=== PATIENT | male | born 1980 | race Caucasian/White ===

== ENCOUNTER 2016-11-17 07:09 | Emergency (ER) | payer OTHER ==
[~2016-11-17] VITALS: Ht 175.3 cm; Wt 104.3 kg
[2016-11-17 08:26] LABS: MEAN CORPUSCULAR HEMOGLOBIN 32.8 pg (27.0-33.0); MEAN CORPUSCULAR VOLUME 93.6 fl (80.0-96.0); WHITE BLOOD COUNT 5.8 K/mm3 (4.0-10.0)
[2016-11-17 08:51] LABS: METHADONE URINE NEGATIVE (NEGATIVE)
[2016-11-17 08:58] LABS: ALBUMIN/GLOBULIN RATIO 1.05 (1.00-1.93); ALKALINE PHOSPHATASE 119 U/L (45-117); ALT/SGPT 409 U/L (12-78); ANION GAP 7 MEQ/L (8-16); AST/SGOT 126 U/L (15-37); BILIRUBIN,DIRECT 0.2 MG/DL (0.0-0.2); BILIRUBIN,TOTAL 0.3 MG/DL (0.2-1.0); BLOOD UREA NITROGEN 8 MG/DL (7-18); CALCIUM LEVEL 8.2 MG/DL (8.5-10.1); CARBON DIOXIDE LEVEL 28 MEQ/L (21-32); CHLORIDE LEVEL 107 MEQ/L (98-107); CREATININE FOR GFR 1.21 MG/DL (0.70-1.30); GLOMERULAR FILTRATION RATE > 60.0 (>60); GLUCOSE, FASTING 126 MG/DL (70-105); POTASSIUM SERUM 4.1 MEQ/L (3.5-5.1); SODIUM LEVEL 142 MEQ/L (136-145); TOTAL PROTEIN 7.8 GM/DL (6.4-8.2)
[2016-11-17] MEDS ORDERED: NICOTINE 21MG/24HR 1 EA TRANSDERMAL TD ONE (09:30)
[2016-11-17 18:24] VITALS: BP 132/76
== END 2016-11-17 18:29 | disposition home or self-care (01) ==
LOC: M ED 08:27
DX: F10.120 Alcohol abuse with intoxication, uncomplicated (principal); F10.151 Alcohol abuse with alcohol-induced psychotic disorder with hallucinations; F17.210 Nicotine dependence, cigarettes, uncomplicated

== ENCOUNTER → 2018-03-01 | Outpatient (REF) | payer OTHER ==
[2018-03-01 15:55] LABS: ALBUMIN 3.8 GM/DL (3.2-5.2); ALBUMIN/GLOBULIN RATIO 1.12 (1.00-1.93); ALKALINE PHOSPHATASE 112 U/L (45-117); ALT/SGPT 183 U/L (12-78); AST/SGOT 83 U/L (7-37); BILIRUBIN,DIRECT 0.2 MG/DL (0.0-0.2); BILIRUBIN,TOTAL 0.5 MG/DL (0.2-1.0); TOTAL PROTEIN 7.2 GM/DL (6.4-8.2)
[2018-03-02 09:43] LABS: HEPATITIS B SURFACE ANTIBODY POSITIVE (POSITIVE)
[2018-03-02 10:09] LABS: HIV 1&2 SCREEN CENTAUR NEGATIVE (NEGATIVE)
[2018-03-07 00:12] LABS: ALPHA 2-MACROGLOBULIN 160 mg/dL (110-276); ALT 181 IU/L (0-55); APOLIPOPROTEIN A-1 130 mg/dL (101-178); FIBROSIS SCORE 0.23 (0.00-0.21); FIBROSIS STAGE F0-F1 (.); GGT 54 IU/L (0-65); HAPTOGLOBIN 20 mg/dL (34-200); HEPATITIS A IgG TOTAL Positive (Negative); HEPATITIS C QUANTITATION 892980 IU/mL (.); HEPATITIS C VIRUS GENOTYPE 1a (.); NECROINFLAM SCORE 0.76 (0.00-0.17); NECROINFLAMM GRADE A3-Severe activity (.); TOTAL BILIRUBIN 0.2 mg/dL (0.0-1.2)
== END ==
LOC: M SFHCPLAZ 12:26
DX: B18.2 Chronic viral hepatitis C (principal)

== ENCOUNTER → 2018-11-06 | Outpatient (REF) ==
--- NOTE | 2018-11-07 01:33 | REP ---
Clinical: Pain and disability. Technique: AP, lateral, bilateral oblique views of the right ankle. Findings: Evidence of prior open reduction and fixation involving the distal fibula and medial malleolus. Post traumatic arthritic degenerative changes are appreciated including cortical irregularities, areas of subchondral sclerosis, as well as calcified fracture fragments and loose bodies along the medial joint space. Moderate soft tissue swelling is also suggested. Impression: Evidence of prior trauma and fixation with post traumatic arthritic changes. Electronically Signed by Jatin Sood MD 11/07/2018 01:24 A
== END ==
LOC: M SMT 14:37
PROVIDERS: ATTEND Internal Medicine
DX: Z00.00 Encounter for general adult medical examination without abnormal findings (principal)

== ENCOUNTER 2019-11-24 18:16 | Inpatient (IN) | payer OTHER ==
[~2019-11-24] VITALS: Ht 175.3 cm; Wt 90.9 kg
[2019-11-24 19:00] LABS: HEMATOCRIT 42.9 % (42.0-52.0); HEMOGLOBIN 15.2 g/dl (13.5-17.5); MEAN CORPUSCULAR HEMOGLOBIN 30.6 pg (27.0-33.0); MEAN CORPUSCULAR HGB CONC 35.4 g/dl (32.0-36.5); MEAN CORPUSCULAR VOLUME 86.5 fl (80.0-96.0); PLATELET COUNT, AUTOMATED 219 10^3/uL (150-450); RED BLOOD COUNT 4.96 10^6/uL (4.30-6.10)
[2019-11-24 19:34] LABS: ACETAMINOPHEN LEVEL < 2.0 UG/ML (10.0-30.0); ALBUMIN 3.9 GM/DL (3.2-5.2); ALT/SGPT 24 U/L (12-78); BILIRUBIN,DIRECT 0.1 MG/DL (0.0-0.2); BILIRUBIN,TOTAL 0.5 MG/DL (0.2-1.0); BLOOD UREA NITROGEN 9 MG/DL (7-18); CALCIUM LEVEL 8.5 MG/DL (8.5-10.1); CARBON DIOXIDE LEVEL 23 MEQ/L (21-32); CHLORIDE LEVEL 103 MEQ/L (98-107); CREATININE FOR GFR 0.98 MG/DL (0.70-1.30); ETHYL ALCOHOL (ETHANOL) 0.078 % (0.000-0.010); GLOMERULAR FILTRATION RATE > 60.0 (>60); GLUCOSE, FASTING 83 MG/DL (70-100); POTASSIUM SERUM 3.8 MEQ/L (3.5-5.1); SALICYLATE LEVEL < 1.7 MG/DL (5.0-30.0); SODIUM LEVEL 136 MEQ/L (136-145); THYROID STIMULATING HORMONE 0.925 uIU/ML (0.358-3.740); TOTAL PROTEIN 7.3 GM/DL (6.4-8.2)
[2019-11-24 20:38] LABS: AMPHETAMINES LEVEL URINE NEGATIVE (NEGATIVE); BARBITURATES URINE NEGATIVE (NEGATIVE); BENZODIAZEPINES URINE NEGATIVE (NEGATIVE); CANNABINOIDS URINE NEGATIVE (NEGATIVE); COCAINE METABOLITE URINE NEGATIVE (NEGATIVE); METHADONE URINE NEGATIVE (NEGATIVE); OPIATES URINE NEGATIVE (NEGATIVE); PHENCYCLIDINE URINE NEGATIVE (NEGATIVE)
[2019-11-24] MEDS ORDERED: LORazepam 1 MG TAB PO ONE (22:00)
[2019-11-24] MEDS ORDERED: hydrOXYzine 50 MG TAB PO ONE (23:30)
[2019-11-25] MEDS ORDERED: ACETAMINOPHEN 500 MG TAB PO ONE (02:45)
[2019-11-25] MEDS ORDERED: MOM 30ML SUSPENSION UDC PO PRN (16:30)
[2019-11-25] MEDS ORDERED: traZODone 50 MG TAB PO PRN (16:30)
[2019-11-25] MEDS ORDERED: MAALOX 30 ML SUSP *UDC PO PRN (16:30)
[2019-11-25] MEDS ORDERED: ACETAMINOPHEN TAB 650MG DOSE (2X325MG) PO PRN (16:30)
[2019-11-25 17:42] VITALS: BP 140/72
[2019-11-25] MEDS: NICOTINE 21MG/24HR 1 EA TRANSDERMAL TD SCH (18:58)
[2019-11-25] MEDS: OLANZapine ORAL DISINTEGRATING TAB 5MG PO PRN (19:57)
[2019-11-26] MEDS: tiZANidine 4 MG TAB PO PRN ×2 (00:13→20:13)
[2019-11-26 06:13] VITALS: BP 137/91
--- NOTE | 2019-11-26 07:09 | ECGEPIP ---
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
--- NOTE | 2019-11-26 09:17 | MHHPEPDOC ---
[facility] History & Physical History and Physical DATE OF ADMISSION: November 25, 2019 at 16:20 New Patient Trent Denise MRN: N/A Date of : N/A Date of Service: 11/26/2019 Chief Complaint "I was drinking." History of Present Illness The patient a 39-year-old man with a history of reported bipolar disorder presents after becoming drunk and being brought in for evaluation. He had been notably unusually acting and had a significantly unusual presentation which was concerning for psychosis. He was admitted out of an abundance of caution. When he was met with he described that he was no longer thinking in that same way and have been drinking on the night in question. The patient reported that he has a history of bipolar disorder with symptoms consistent with possibly a manic episode while sober. However, he reports that he is currently in trouble with probation as he was found drinking. He reports that he at this time is feeling much improved. Review Of Systems Depression: The patient reports episodes of low mood in the past, unclear if meeting full criteria for MDD. Anxiety: None reported. Nesha: The patient denies any episodes of euphoria/dysphoria associated with decreased need for sleep, hedonism, talkatively or impulsivity lasting longer than 5 days. Psychotic: The patient denies any experiences of auditory or visual hallucinations. They deny any episodes of paranoia or delusional thinking in the past Trauma: The patient denies any traumatic events associated with nightmares or intrusive thoughts. Borderline: Not screened. Past Psychiatric History The patient reports having a history of presenting to the ER but no overt admissions, no suicide attempts, diagnosis of bipolar previously tried on Seroquel, no current mental health treatment. Allergies Please see below. Family Psychiatric History Noncontributory. Social History Currently on probation. The patient has a significant legal history. Grew up in the local area and moved to [place] recently. Denies any history of trauma or abuse. Substance Abuse History Reports a history of drinking and problems related but denies other substances at this time. Reports experimenting with a number of them but never being "fixated on them." Medical History History of orthopedic surgery but no other contributing problems. Mental Status Examination General: Well dressed with good hygiene Speech: Spontaneous and fluid Thought processes: Linear and logical MSK: Smooth and coordinated gait, no signs of tremors or involuntary orofacial movements Thought content: Future orientated Abstract reasoning, and computation: Intact Description of associations: Intact Description of abnormal or psychotic thoughts: Denies any suicidal or homicidal ideation. Denies any auditory or visual hallucinations. Does not appear to be responding to internal stimuli. Does not appear to be endorsing any bizarre or paranoid ideation. Judgment: fair Insight: fair Orientation: Alert and orientated 3 Cognition: Grossly normal Recent and remote memory: Intact Attention span and concentration: Intact Fund of knowledge: Adequate Mood: "okay" Affect: Mildly dysthymic Diagnoses Unspecified bipolar disorder. Alcohol use disorder, unspecified. Assessment and Plan Unspecified bipolar disorder: Start Seroquel 25 mg nightly, discussed the risk, benefits, potential side effects with patient including alternatives. Alcohol use disorder: Maintained CIWA at this time. Disposition Will observe overnight if patient is still amenable without any suicidal or homicidal ideation, he will be discharged at his request. Problem List 1. Ineffective coping. 2. Substance use Initial Treatment Plan 1. Patient was admitted on a 9.39 legal status. 2. Complete history was obtained. 3. With patients permission, family will be contacted and database will be e xpanded. 4. Patients medication regimen will be reviewed and changed accordingly. 5. Patient will be provided with protected environment. 6. Patient will be treated with individual, group, and milieu therapies. 7. Patient will receive supportive psych-education. 8. Discharge planning will commence immediately. 9. Outpatient follow-up treatment will be strongly recommended. 10. The initial treatment plan will focus initially on: Estimated Length Of Stay 2 days. Time Spent 70 minutes with greater than 50% of time spent on counseling/coordination of care. Vital Signs Vital Signs Date Time Temp Pulse Resp B/P (MAP) Pulse Ox O2 Delivery O2 Flow Rate FiO2 11/26/19 08:45 Room Air 11/26/19 06:13 98.5 55 14 137/91 (106) 98 Medications Scheduled Nicotine (Nicotine Patch) 21 Mg Patch.td24, 1 PATCH TD DAILY for tobacoo Quetiapine Fumarate (Quetiapine Fumarate) 25 Mg Tablet, 25 MG PO QHS for mood Allergies Coded Allergies: No Known Allergies (Unverified , 11/17/16) WU BURCH DO November 26, 2019 09:17
[2019-11-26] MEDS: NICOTINE 21MG/24HR 1 EA TRANSDERMAL TD SCH (11:10)
--- NOTE | 2019-11-26 15:07 | HPEPDOC ---
General Date of Admission November 25, 2019 at 16:20 Date of Service: November 26, 2019 Chief Complaint The patient is a 39-year-old male who presented to [facility] because his nuclear medicine officer found him to be intoxicated History of Present Illness Patient is a 39-year-old male with a PMHx of substance abuse who was brought to [facility] by police because of reported altered mental status at home. Patient had denied any suicidal / homidicidla ideation. He does admit to consuming alcohol. Patient was admitted to inpatient mental health under the care of psychiatry. Hospitalist services consult for medical screening evaluation. Patient reports a mild headache. He denies any nausea, vomiting, chest pain, shortness of breath, palpitations, abdominal pain, constipation, diarrhea, or urinary discomfort. He is not aware of any recent fevers or chills. Reports that his appetite is normal. His weight has been persistent. Home Medications No Active Prescriptions or Reported Meds Allergies Coded Allergies: No Known Allergies (Unverified , 11/17/16) Past Medical History Medical History Prior history of substance abuse Surgical History Right ankle surgery Family History - No history of malignancies Social History - Denies the use of tobacco or illicit drugs currently; patient recently did consume alcohol - Denies recent travel or sick contacts - Lives with jason and her son - Occupation; patient reports that he works at [employer] Review of Systems Other systems 10 point review of systems complete, all negative otherwise stated in HPI Vital Signs - Vitals: BP 137/91, HR 55, RR 14, Sat 98%RA, Temp 98.5F - General: Lying in bed, No acute distress, Speaking in full sentences, AAOx3 - HEENT: NC, AT, PERRLA, EOMI - CVS: RRR, +S1S2 - Lungs: Fair air entry bilaterally, No appreciable wheezing / rales / rhonchi - Abdomen: Soft, Non-distended, Non-tender - Extremities: No lower extremity edema, No calf tenderness - Neuro: No focal motor or sensory deficit - Skin: No visible rashes Plan / VTE VTE Prophylaxis Ordered?: Yes Plan Plan Substance abuse - Patient was admitted to the inpatient mental health unit under the care of psychiatry - Currently being managed by psychiatry No significant past medical history DVT prophylaxis - Will continue with early ambulation Thank you for this consultation; please reconsult as needed JADON GAMBOA MD November 26, 2019 15:07
[2019-11-26 16:42] VITALS: BP 146/80
[2019-11-26] MEDS ORDERED: QUEtiapine FUMARATE 25 MG TAB PO SCH (21:00)
[2019-11-27 06:17] VITALS: BP 131/81
[2019-11-27] MEDS: NICOTINE 21MG/24HR 1 EA TRANSDERMAL TD SCH (08:05)
[2019-11-27] MEDS: tiZANidine 4 MG TAB PO PRN (08:05)
[2019-11-27] MEDS: OLANZapine ORAL DISINTEGRATING TAB 5MG PO PRN (08:05)
--- NOTE | 2019-11-27 09:54 | MHDSPDOC ---
[facility] Discharge Summary Discharge Summary DATE OF ADMISSION: November 25, 2019 at 16:20 DATE OF DISCHARGE: 11/27/2019 Discharge Trent Denise MRN: N/A Date of : N/A Date of Service: 11/27/2019 Diagnoses Unspecified bipolar disorder. Alcohol use disorder, unspecified. History of Present Illness The patient a 39-year-old man with a history of reported bipolar disorder presents after becoming drunk and being brought in for evaluation. He had been notably unusually acting and had a significantly unusual presentation which was concerning for psychosis. He was admitted out of an abundance of caution. When he was met with he described that he was no longer thinking in that same way and have been drinking on the night in question. The patient reported that he has a history of bipolar disorder with symptoms consistent with possibly a manic episode while sober. However, he reports that he is currently in trouble with probation as he was found drinking. He reports that he at this time is feeling much improved. Consultants Involved Hospitalist/PCP screening Treatment and Progress On The Unit The patient was admitted to the inpatient mental health unit. He was started on Seroquel. He did not have any notable paranoia or bizarreness when he had arrived . He was treated well and he improved with good insight and generally improved without much dysthymia after his initial presentation. He had an uneventful admission, was compliant with treatment and generally pleasant. He had no major behavioral problems and was discharged at his request after 48 hours of observation. Discharge Assessment 39 -year-old man with likely alcohol problems creating some unusual behaviors misinterpreted as psychosis. He does have a history potentially of bipolar disorder and started on appropriate treatment. The patient at the time of discharge did not meet criteria for involuntary a dmission/extension due to having a normal mental status exam, fair insight into the situation, They are engaged in the discharge process, as well as being friendly and amenable in behavioral control and havent been engaging in any observed concerning behavior or ideation recently. They decline voluntary extension/admission at this time and must be discharged in good brittany, as Im unable to make a case for holding the patient against their will. They may have historical risk factors of admissions and other interactions with psychiatry however, those are not modifiable from a clinical perspective. The patient will need to be discharged in good brittany. Mental Status Examination General: Well dressed with good hygiene Speech: Spontaneous and fluid Thought processes: Linear and logical MSK: Smooth and coordinated gait, no signs of tremors or involuntary orofacial movements Thought content: Future orientated Abstract reasoning, and computation: Intact Description of associations: Intact Description of abnormal or psychotic thoughts: Denies any suicidal or homicidal ideation. Denies any auditory or visual hallucinations. Does not appear to be responding to internal stimuli. Does not appear to be endorsing any bizarre or paranoid ideation. Judgment: fair Insight: fair Orientation: Alert and orientated 3 Cognition: Grossly normal Recent and remote memory: Intact Attention span and concentration: Intact Fund of knowledge: Adequate Mood: "okay" Affect: Euthymic with a full range Follow Up The social work team worked during the predischarge meeting in order to evaluate for further issues of lethality address them fully before discharge. They worked on safety planning with the patient's family members in order to ensure that the patient will have a safe and effective discharge. Time Spent The amount of time spent in the coordination of care for this patient was approximately 45 minutes. Monday Vital Signs/I&Os Vital Signs Date Time Temp Pulse Resp B/P (MAP) Pulse Ox O2 Delivery O2 Flow Rate FiO2 11/27/19 07:55 Room Air 11/27/19 06:17 97.6 85 14 131/81 (98) 98 Medications Scheduled Nicotine (Nicotine Patch) 21 Mg Patch.td24, 1 PATCH TD DAILY for tobacoo for 30 Days, #30 Quetiapine Fumarate (Quetiapine Fumarate) 25 Mg Tablet, 25 MG PO QHS for mood for 7 Days, #7 Allergies Coded Allergies: No Known Allergies (Unverified , 11/17/16) WU BURCH DO November 27, 2019 09:54
[2019-11-27] MEDS ORDERED: NICO21PAT TD (10:15)
[2019-11-27] MEDS ORDERED: QUET25TA3 PO (10:15)
== END 2019-11-27 13:45 | disposition home or self-care (01) | DRG 753 ==
LOC: M ED 18:16 → M ED INP 11-25 16:20 → M PSY 11-25 17:40
PROVIDERS: ADMIT Psychiatry & Neurology Addiction Medicine; ATTEND Psychiatry & Neurology Addiction Medicine
DX: F31.9 Bipolar disorder, unspecified (principal); F10.10 Alcohol abuse, uncomplicated

== ENCOUNTER 2019-12-21 23:38 | Emergency (ER) | payer OTHER ==
[~2019-12-21 23:38] MED LIST: NICO21PAT TD; QUET1TAB7 PO
[2019-12-22 00:38] LABS: HEMATOCRIT 45.2 % (42.0-52.0); HEMOGLOBIN 15.7 g/dl (13.5-17.5); MEAN CORPUSCULAR HEMOGLOBIN 30.7 pg (27.0-33.0); MEAN CORPUSCULAR HGB CONC 34.7 g/dl (32.0-36.5); MEAN CORPUSCULAR VOLUME 88.5 fl (80.0-96.0); PLATELET COUNT, AUTOMATED 241 10^3/uL (150-450); RED BLOOD COUNT 5.11 10^6/uL (4.30-6.10); WHITE BLOOD COUNT 8.8 10^3/uL (4.0-10.0)
[2019-12-22 00:43] LABS: AMPHETAMINES LEVEL URINE NEGATIVE (NEGATIVE); BARBITURATES URINE NEGATIVE (NEGATIVE); BENZODIAZEPINES URINE NEGATIVE (NEGATIVE); CANNABINOIDS URINE NEGATIVE (NEGATIVE); COCAINE METABOLITE URINE NEGATIVE (NEGATIVE); METHADONE URINE NEGATIVE (NEGATIVE); OPIATES URINE NEGATIVE (NEGATIVE); PHENCYCLIDINE URINE NEGATIVE (NEGATIVE)
[2019-12-22 01:02] LABS: ACETAMINOPHEN LEVEL < 2.0 UG/ML (10.0-30.0); ALBUMIN 4.4 GM/DL (3.2-5.2); ALT/SGPT 43 U/L (12-78); BILIRUBIN,DIRECT 0.2 MG/DL (0.0-0.2); BILIRUBIN,TOTAL 0.3 MG/DL (0.2-1.0); BLOOD UREA NITROGEN 23 MG/DL (7-18); CALCIUM LEVEL 8.6 MG/DL (8.5-10.1); CARBON DIOXIDE LEVEL 25 MEQ/L (21-32); CHLORIDE LEVEL 106 MEQ/L (98-107); CREATININE FOR GFR 1.21 MG/DL (0.70-1.30); ETHYL ALCOHOL (ETHANOL) 0.266 % (0.000-0.010); GLOMERULAR FILTRATION RATE > 60.0 (>60); GLUCOSE, FASTING 101 MG/DL (70-100); POTASSIUM SERUM 4.2 MEQ/L (3.5-5.1); SALICYLATE LEVEL < 1.7 MG/DL (5.0-30.0); SODIUM LEVEL 139 MEQ/L (136-145); TOTAL PROTEIN 7.8 GM/DL (6.4-8.2)
[2019-12-22 09:00] VITALS: BP 130/60
== END 2019-12-22 09:38 | disposition home or self-care (01) ==
LOC: M ED 23:38
DX: F10.121 Alcohol abuse with intoxication delirium (principal); F19.150 Other psychoactive substance abuse with psychoactive substance-induced psychotic disorder with delusions; Z79.899 Other long term (current) drug therapy
CPT/HCPCS: 36415; 80048; 80076; 80307; 84443; 85027; 99284; G0480

== ENCOUNTER 2023-02-17 08:59 | Inpatient (IN) | payer OTHER ==
[~2023-02-17] VITALS: Ht 175.3 cm; Wt 210.1 kg
[~2023-02-17 08:59] MED LIST changes: +QUET1TAB17 PO; -QUET1TAB7 PO
[2023-02-17] MEDS ORDERED: BUPR1SUB5 SL (09:15)
[2023-02-17] MEDS ORDERED: DOCU100C16 PO (09:15)
[2023-02-17] MEDS ORDERED: LUMA42CA PO (09:15)
[2023-02-17 10:24] LABS: HEMATOCRIT 43.9 % (42.0-52.0); HEMOGLOBIN 15.2 g/dl (13.5-17.5); MEAN CORPUSCULAR HEMOGLOBIN 30.3 pg (27.0-33.0); MEAN CORPUSCULAR HGB CONC 34.6 g/dl (32.0-36.5); MEAN CORPUSCULAR VOLUME 87.5 fl (80.0-96.0); PLATELET COUNT, AUTOMATED 201 10^3/uL (150-450); RED BLOOD COUNT 5.02 10^6/uL (4.30-6.10); WHITE BLOOD COUNT 8.6 10^3/uL (4.0-10.0)
[2023-02-17 10:37] LABS: AMPHETAMINES LEVEL URINE NEGATIVE (NEGATIVE); BARBITURATES URINE NEGATIVE (NEGATIVE); BENZODIAZEPINES URINE NEGATIVE (NEGATIVE); CANNABINOIDS URINE NEGATIVE (NEGATIVE); COCAINE METABOLITE URINE NEGATIVE (NEGATIVE); METHADONE URINE NEGATIVE (NEGATIVE); OPIATES URINE NEGATIVE (NEGATIVE); PHENCYCLIDINE URINE NEGATIVE (NEGATIVE)
[2023-02-17 10:46] LABS: ETHYL ALCOHOL (ETHANOL) < 0.003 % (0.000-0.010)
[2023-02-17 10:48] LABS: ACETAMINOPHEN LEVEL < 2.0 UG/ML (10.0-20.0); ALKALINE PHOSPHATASE 73 U/L (46-116); ALT/SGPT 47 U/L (7.0-40); AST/SGOT 38 U/L (<34); BILIRUBIN,DIRECT 0.2 MG/DL (<0.4); BILIRUBIN,TOTAL 0.6 MG/DL (0.3-1.2); BLOOD UREA NITROGEN 9 MG/DL (9-23); CALCIUM LEVEL 9.2 MG/DL (8.5-10.1); CARBON DIOXIDE LEVEL 27 MMOL/L (20-31); CHLORIDE LEVEL 101 MMOL/L (98-107); CREATININE FOR GFR 0.93 MG/DL (0.70-1.30); GLOMERULAR FILTRATION RATE > 60.0 (>60); GLUCOSE, FASTING 112 MG/DL (60-100); POTASSIUM SERUM 4.3 MMOL/L (3.5-5.1); SALICYLATE LEVEL < 3.0 MG/DL (<30); SODIUM LEVEL 136 MMOL/L (136-145); TOTAL PROTEIN 6.8 G/DL (5.7-8.2)
[2023-02-17] MEDS ORDERED: OLANZapine ORAL DISINTEGRATING TAB 5MG PO ONE (11:50)
[2023-02-17] MEDS ORDERED: LORazepam 2 MG TAB PO STA (11:50)
[2023-02-17] MEDS ORDERED: MED REC IN PROGRESS XX SCH (12:35)
[2023-02-17] MEDS ORDERED: HOME MED LIST COMPLETE! XX SCH (12:40)
[2023-02-17] MEDS ORDERED: MAALOX 30 ML SUSP *UDC PO PRN (14:25)
[2023-02-17] MEDS ORDERED: IBUPROFEN 400MG TAB PO PRN (14:25)
[2023-02-17] MEDS ORDERED: MOM 30ML SUSPENSION UDC PO PRN (14:25)
[2023-02-17] MEDS ORDERED: ACETAMINOPHEN TAB 650MG DOSE (2X325MG) PO PRN (14:25)
[2023-02-17 17:05] VITALS: BP 114/59; TEMP 96.6; O2SAT 99
[2023-02-17 17:15] VITALS: BP 114/59; TEMP 96.6; O2SAT 99
[2023-02-18 06:06] VITALS: BP 128/77; TEMP 97.3; O2SAT 95
[2023-02-18 18:33] VITALS: BP 131/81; TEMP 96.3; O2SAT 100
[2023-02-18] MEDS: traZODone 50 MG TAB PO PRN (20:05)
[2023-02-19 06:59] VITALS: BP 121/85; TEMP 97.1; O2SAT 98
[2023-02-19 08:12] LABS: HEPATITIS B CORE ANTIBODY IGM NEGATIVE (NEGATIVE)
[2023-02-19 08:15] LABS: HEPATITIS C VIRUS ABY INDEX > 11.00 INDEX (<0.8)
[2023-02-19 17:57] VITALS: BP 150/90; TEMP 96.9; O2SAT 100
[2023-02-19] MEDS: LORazepam 2 MG TAB PO PRN (20:05)
[2023-02-19] MEDS: traZODone 50 MG TAB PO PRN (21:11)
[2023-02-20 06:46] VITALS: BP 107/63; TEMP 98.4; O2SAT 97
[2023-02-20] MEDS ORDERED: OLANZapine 2.5MG TABLET PO SCH (11:26)
[2023-02-20] MEDS: OLANZapine 2.5MG TABLET PO SCH ×2 (11:55→21:46)
[2023-02-20] MEDS: CAPLYTA 42 MG PO SCH ×2 (14:43→21:46)
[2023-02-20] MEDS: BUPRENORPHINE/NALOXONE 8-2MG SUBLINGUAL TABLET(SUBOXONE) SL SCH ×2 (16:03→21:46)
[2023-02-20 18:03] VITALS: BP 110/69; TEMP 98.6; O2SAT 98
[2023-02-21] MEDS: LORazepam 2 MG TAB PO PRN (02:29)
[2023-02-21 06:27] VITALS: BP 105/62; TEMP 97; O2SAT 99
[2023-02-21] MEDS: BUPRENORPHINE/NALOXONE 8-2MG SUBLINGUAL TABLET(SUBOXONE) SL SCH ×3 (10:15→21:36)
[2023-02-21] MEDS: diphenhydrAMINE 25MG CAP PO PRN (16:36)
[2023-02-21 18:57] VITALS: BP 140/74; TEMP 97.3
[2023-02-21 19:00] VITALS: BP 140/74; TEMP 97.3; O2SAT 99
[2023-02-21] MEDS ORDERED: OLANZapine 5 MG TAB PO SCH (21:00)
[2023-02-21] MEDS: CAPLYTA 42 MG PO SCH (21:36)
[2023-02-22 06:29] VITALS: BP 96/63; TEMP 96.8; O2SAT 97
[2023-02-22] MEDS: BUPRENORPHINE/NALOXONE 8-2MG SUBLINGUAL TABLET(SUBOXONE) SL SCH ×3 (09:55→21:17)
[2023-02-22] MEDS: OLANZapine 10 MG TAB PO SCH (09:55)
[2023-02-22 18:28] VITALS: BP 146/76; TEMP 97
[2023-02-22] MEDS ORDERED: OLANZapine 10 MG TAB PO SCH (21:00)
[2023-02-22] MEDS: CAPLYTA 42 MG PO SCH (21:17)
[2023-02-22] MEDS: QUEtiapine FUMARATE 100 MG TAB PO SCH (21:18)
[2023-02-22 23:08] LABS: HEPATITIS C QUANTITATION HCV Not Detected IU/mL (.)
[2023-02-23 06:19] VITALS: BP 95/56; TEMP 97
[2023-02-23 07:20] LABS: CHOLESTEROL RISK RATIO 3.91 (<5)
[2023-02-23] MEDS: BUPRENORPHINE/NALOXONE 8-2MG SUBLINGUAL TABLET(SUBOXONE) SL SCH ×3 (09:40→21:36)
[2023-02-23] MEDS: OLANZapine 10 MG TAB PO SCH (09:40)
[2023-02-23] MEDS: risperiDONE 2 MG TAB PO SCH ×2 (15:05→21:33)
[2023-02-23 18:00] VITALS: BP 126/82; TEMP 97.3
[2023-02-23] MEDS ORDERED: OLANZapine 10 MG TAB PO SCH (21:00)
[2023-02-23] MEDS: CAPLYTA 42 MG PO SCH (21:32)
[2023-02-23] MEDS: QUEtiapine FUMARATE 100 MG TAB PO SCH (21:34)
[2023-02-24 06:07] VITALS: BP 111/66; TEMP 97.5; O2SAT 96
[2023-02-24] MEDS: BUPRENORPHINE/NALOXONE 8-2MG SUBLINGUAL TABLET(SUBOXONE) SL SCH ×3 (09:12→20:51)
[2023-02-24] MEDS: risperiDONE 2 MG TAB PO SCH ×2 (09:12→20:51)
[2023-02-24 17:27] VITALS: BP 110/65; TEMP 96.5; O2SAT 97
[2023-02-24] MEDS: OLANZapine 5 MG TAB PO SCH (20:51)
[2023-02-24] MEDS: CAPLYTA 42 MG PO SCH (20:51)
[2023-02-24] MEDS: traZODone 50 MG TAB PO PRN (20:53)
[2023-02-24] MEDS: diphenhydrAMINE 25MG CAP PO PRN (23:24)
[2023-02-25 06:26] VITALS: BP 109/73; TEMP 97.7; O2SAT 97
[2023-02-25] MEDS ORDERED: risperiDONE LONG-ACTING 37.5MG 2ML INJ IM SCH (09:00)
[2023-02-25] MEDS: BUPRENORPHINE/NALOXONE 8-2MG SUBLINGUAL TABLET(SUBOXONE) SL SCH ×3 (09:15→20:11)
[2023-02-25] MEDS: risperiDONE 2 MG TAB PO SCH ×2 (09:15→20:11)
[2023-02-25 17:57] VITALS: BP 142/84; TEMP 97.4; O2SAT 97
[2023-02-25] MEDS: OLANZapine 5 MG TAB PO SCH (20:11)
[2023-02-25] MEDS: CAPLYTA 42 MG PO SCH (20:12)
[2023-02-26] MEDS: traZODone 50 MG TAB PO PRN ×2 (01:12→21:19)
[2023-02-26] MEDS: diphenhydrAMINE 25MG CAP PO PRN ×2 (01:13→22:56)
[2023-02-26 06:33] VITALS: BP 127/85; TEMP 98.7; O2SAT 97
[2023-02-26] MEDS: BUPRENORPHINE/NALOXONE 8-2MG SUBLINGUAL TABLET(SUBOXONE) SL SCH ×3 (09:28→21:18)
[2023-02-26] MEDS: risperiDONE 2 MG TAB PO SCH ×2 (09:28→21:18)
[2023-02-26 16:40] VITALS: BP 123/72; TEMP 97.3; O2SAT 97
[2023-02-26] MEDS: CAPLYTA 42 MG PO SCH (21:17)
[2023-02-26] MEDS: OLANZapine 5 MG TAB PO SCH (21:18)
[2023-02-27 06:16] VITALS: BP 110/63; TEMP 97.8; O2SAT 95
[2023-02-27] MEDS ORDERED: risperiDONE LONG-ACTING 37.5MG 2ML INJ IM SCH (09:00)
[2023-02-27] MEDS: BUPRENORPHINE/NALOXONE 8-2MG SUBLINGUAL TABLET(SUBOXONE) SL SCH (09:49)
[2023-02-27] MEDS: risperiDONE 2 MG TAB PO SCH (09:49)
[2023-02-27] MEDS ORDERED: RISP-9 PO (10:24)
[2023-02-27] MEDS ORDERED: BENA25CA4 PO (10:24)
[2023-02-27] MEDS ORDERED: RISP37INJ IM (10:24)
[2023-02-27] MEDS ORDERED: OLAN1TAB16 PO (10:24)
[2023-02-27] MEDS ORDERED: TRAZ-252 PO (10:24)
== END 2023-02-27 11:45 | disposition home or self-care (01) | DRG 750 ==
LOC: M ED 08:59 → M ED INP 14:25 → M PSY 17:37
PROVIDERS: ADMIT Student in an Organized Health Care Education/Training Program; ATTEND Student in an Organized Health Care Education/Training Program
DX: F20.9 Schizophrenia, unspecified (principal); F15.10 Other stimulant abuse, uncomplicated; F31.9 Bipolar disorder, unspecified